=== PATIENT | female | born 1980 | race African-American/Black ===

== ENCOUNTER → 2016-04-09 | Outpatient (CLI) | payer MEDICARE, OTHER ==
[~2016-04-09] MED LIST: CETI10 PO; D32000CA PO; FLUT1SPR9 NASAL; OMPR20CCR PO; SUMA50 PO; TAB-TAB PO; VITA100017 PO; VITA500T49 PO
[2016-04-09 12:09] LABS: HEMATOCRIT 36.5 % (35.0-46.0); MEAN CELL VOLUME 83.7 FL (80.0-100.0); MEAN CORPUSCULAR HEMOGLOBIN 27.8 PG (27.0-34.0); MEAN CORPUSCULAR HGB CONC 33.3 % (32.0-36.0); PLATELET COUNT 423 TH/MM3 (150-450); RED BLOOD COUNT 4.37 MIL/MM3 (4.00-5.30); RED CELL DISTRIBUTION WIDTH 13.8 % (11.6-17.2); REVIEW FLAG FINAL; WHITE BLOOD COUNT 6.1 TH/MM3 (4.0-11.0)
[2016-04-09 12:40] LABS: ALKALINE PHOSPHATASE 67 U/L (45-117); ALT (GPT) 22 U/L (10-53); ANION GAP 6 MEQ/L (5-15); AST (GOT) 11 U/L (15-37); BICARBONATE 28.7 MEQ/L (21.0-32.0); BLOOD UREA NITROGEN 11 MG/DL (7-18); CHLORIDE 104 MEQ/L (98-107); GLOMERULAR FILTRATION RATE 75 ML/MIN (>89); GLUCOSE,FASTING 87 MG/DL (74-99); POTASSIUM 3.7 MEQ/L (3.5-5.1); SODIUM (NA) 139 MEQ/L (136-145); TOTAL BILIRUBIN ADULT 0.3 MG/DL (0.2-1.0)
[2016-04-09 13:57] LABS: WESTERGREN SEDIMENTATION RATE 64 mm/hr (0-20)
[2016-04-11 17:54] LABS: A FUMIGATUS CLASS 0 (()); A TENUIS LESS THAN 0 kU/L (()); A TENUIS CLASS 0 (()); BAHIA GRASS LESS THAN 0.10 kU/L (()); BAHIA GRASS CLASS 0 (()); BERMUDA GRASS LESS THAN 0.10 kU/L (()); BERMUDA GRASS CLASS 0 (()); BIRCH CLASS 0 (()); C HERBARUM LESS THAN 0.10 kU/L (()); C HERBARUM CLASS 0 (()); CAT DANDER LESS THAN 0.10 kU/L (()); CAT DANDER CLASS 0 (()); COCKROACH 0.58 kU/L (()); COCKROACH CLASS 1 (()); COMMON PIGWEED LESS THAN 0.10 kU/L (()); COMMON PIGWEED CLASS 0 (()); COMMON RAGWEED LESS THAN 0.10 kU/L (()); COMMON RAGWEED CLASS 0 (()); D FARINAE 0.27 kU/L (()); D PTERONYSSINUS 0.31 kU/L (()); DOG DANDER LESS THAN 0.10 kU/L (()); DOG DANDER CLASS 0 (()); ELM CLASS 0 (()); MAPLE (BOX ELDER) LESS THAN 0.10 kU/L (()); MAPLE (BOX ELDER) CLASS 0 (()); MOUNTAIN CEDAR LESS THAN 0.10 kU/L (()); MOUNTAIN CEDAR CLASS 0 (()); MOUSE CLASS 0 (()); MOUSE URINE PROTEINS LESS THAN 0.10 kU/L (()); NETTLE LESS THAN 0.10 kU/L (()); NETTLE CLASS 0 (()); OAK WHITE LESS THAN 0.10 kU/L (()); OAK WHITE CLASS 0 (()); PECAN TREE CLASS 0 (()); SHEEP SORREL LESS THAN 0.10 kU/L (()); SHEEP SORREL CLASS 0 (()); TIMOTHY GRASS LESS THAN 0.10 kU/L (()); TIMOTHY GRASS CLASS 0 (())
== END ==
LOC: CLAB 11:34
PROVIDERS: ATTEND Internal Medicine Rheumatology
DX: M06.09 Rheumatoid arthritis without rheumatoid factor, multiple sites (principal); J30.1 Allergic rhinitis due to pollen
CPT/HCPCS: 36415; 80053; 85027; 85652; 86003

== ENCOUNTER 2016-10-04 11:18 | Emergency (ER) | payer MEDICARE, OTHER ==
[~2016-10-04] VITALS: Ht 175.3 cm; Wt 125.0 kg
[2016-10-04 11:19] VITALS: BP 133/86; PULSE 120; RESP 20; TEMP 97.8; O2SAT 98
[2016-10-04] MEDS ORDERED: ONCETAB7 PO (11:35)
[2016-10-04] MEDS ORDERED: VITA500T49 PO (11:35)
[2016-10-04] MEDS ORDERED: ARAV10TA PO (11:35)
[2016-10-04] MEDS ORDERED: CELE50CA PO (11:35)
[2016-10-04] MEDS ORDERED: VITACRY3 (11:35)
[2016-10-04] MEDS ORDERED: FOLI20CA PO (11:35)
[2016-10-04] MEDS ORDERED: ASCO1TAB PO (11:35)
[2016-10-04] MEDS ORDERED: CETI-1 PO (11:35)
[2016-10-04] MEDS ORDERED: ABAT1INJ SQ (11:35)
--- NOTE | 2016-10-04 11:35 | PD ---
HPI Chief Complaint: Lump, Cyst, Hernia Time Seen by Provider: 11:31 Travel History International Travel<30 days: No Contact w/Intl Traveler<30days: No Traveled to known affect area: No History of Present Illness HPI 36-year-old female presents emergency department for evaluation of possible painful pilonidal cyst. Patient reports previous history of multiple incision and drainage of pilonidal cyst. She reports this pain is similar to previous episodes. The pain is nonradiating. She reports pain started personally 7 days ago. Symptoms severity moderate. No aggravating or alleviating factors. She denies fever, chills, nausea, vomiting. PFSH Past Medical History Arthritis: Yes ?: Not Dilation and Curettage (D&C): Yes Past Surgical History Section: Yes Social History Alcohol Use: Yes (occ) Tobacco Use: No Substance Use: No Allergies-Medications (Allergen,Severity, Reaction): Coded Allergies: No Known Allergies (Unverified , 02/22/15) Reported Meds & Prescriptions Reported Meds & Active Scripts Active Reported Folic Acid 20 Mg Cap 20 Mg PO Celebrex (Celecoxib) 50 Mg Cap 20 Mg PO BID Arava (Leflunomide) 10 Mg Tab 10 Mg PO DAILY Orencia Inj (Abatacept Inj) 125 Mg/Ml Syr 125 Mg SQ Q7D Once Daily (Multivitamin) 1 Each Tablet 1 Tab PO DAILY Vitamin B12 (Cyanocobalamin) 500 Mcg Tab 500 Mcg PO DAILY Zyrtec (Cetirizine HCl) 10 Mg Tablet 10 Mg PO DAILY C-1000 Prolonged Release (Ascorbic Acid) 1,000 Mg Tab 1,000 Mg PO DAILY Domitila-C (Ascorbic Acid) 1 Cry Cry Review of Systems Except as stated in HPI: all other systems reviewed are Neg General / Constitutional: No: Fever Eyes: No: Visual changes HENT: No: Headaches Cardiovascular: No: Chest Pain or Discomfort Respiratory: No: Shortness of Breath Gastrointestinal: No: Abdominal Pain Genitourinary: No: Dysuria Physical Exam Narrative GENERAL: Well-nourished, well-developed patient. SKIN: Focused skin assessment warm/dry. 2 cm diameter raised area with central fluctuance superior aspect of the right buttocks fold. No surrounding erythema. HEAD: Normocephalic. EYES: No scleral icterus. No injection or drainage. NECK: Supple, trachea midline. No JVD or lymphadenopathy. CARDIOVASCULAR: Regular rate and rhythm without murmurs, gallops, or rubs. RESPIRATORY: Breath sounds equal bilaterally. No accessory muscle use. GASTROINTESTINAL: Abdomen soft, non-tender, nondistended. MUSCULOSKELETAL: No cyanosis, or edema. BACK: Nontender without obvious deformity. No CVA tenderness. Data Data Last Documented VS Vital Signs Date Time Temp Pulse Resp B/P Pulse Ox O2 Delivery O2 Flow Rate FiO2 10/04/16 11:19 97.8 120 20 133/86 98 Room Air Orders Lidocai-Epi 1%-1:100,000 Inj (Xylocaine- (10/04/16 11:45) MDM Medical Decision Making Medical Screen Exam Complete: Yes Emergency Medical Condition: Yes Differential Diagnosis Abscess, pilonidal cyst, cellulitis Narrative Course 36-year-old female presents emergency department for evaluation of possible pilonidal cyst. Patient reports multiple I&D's in the same site within the last several years. Symptom onset 7 days ago. Patient denies fever or chills. On assessment patient has a 2 cm diameter raised fluctuant abscess. Incision and drainage performed. Patient tolerated procedure well. Patient placed on antibiotics. Instructed to return in 2 days or follow up with her PCP for drain removal. Return precautions discussed. Patient verbalizes understanding Procedures Procedure Narrative Incision and drainage: The area was prepped with Betadine. 2 cc of 1% lidocaine with epi infiltrated to the area of fluctuance. #11 blade used to make a small incision. A large amount of purulent drainage expressed. The wound was packed with iodoform. A sterile dressing placed. Patient tolerated procedure well. Diagnosis Primary Impression: Abscess Referrals: Primary Care Physician Additional Instructions: Take the antibiotics as prescribed. The drainage to be removed in 2 days. Take [id number] Motrin [id number] milligrams by mouth every 6-8 hours as needed for pain. Return to the emergency department if he develop new or worsening symptoms. Scripts Clindamycin 300 Mg [id number] Mg PO Q6H #40 CAP Prov:Effie Alfonso 10/04/16 Disposition: 01 DISCHARGE HOME Condition: Stable Effie Alfonso Oct 04, 2016 11:35
[2016-10-04] MEDS ORDERED: LIDOCAINE 1%/EPINEPHrine 1:100,000 SOLN 20 ML VIAL INFIL ONE (11:45)
[2016-10-04] MEDS ORDERED: CLIN1CAP6 PO (11:58)
== END 2016-10-04 12:07 | disposition home or self-care (01) ==
LOC: NEPD 11:18
DX: L05.91 Pilonidal cyst without abscess (principal); M13.80 Other specified arthritis, unspecified site; Z79.899 Other long term (current) drug therapy
CPT/HCPCS: 10061

== ENCOUNTER → 2016-10-09 | Outpatient (CLI) | payer MEDICARE, OTHER ==
[~2016-10-09] MED LIST changes: +ABAT1INJ SQ; +ARAV10TA PO; +ASCO1TAB PO; +CELE50CA PO; +CETI-1 PO; -CETI10 PO; +CLIN1CAP6 PO; -D32000CA PO; -FLUT1SPR9 NASAL; +FOLI20CA PO; -OMPR20CCR PO; +ONCETAB7 PO; -SUMA50 PO; -TAB-TAB PO; -VITA100017 PO; +VITACRY3
[2016-10-09 10:22] LABS: HEMATOCRIT 34.5 % (35.0-46.0); MEAN CELL VOLUME 83.4 FL (80.0-100.0); MEAN CORPUSCULAR HEMOGLOBIN 27.2 PG (27.0-34.0); MEAN CORPUSCULAR HGB CONC 32.7 % (32.0-36.0); PLATELET COUNT 400 TH/MM3 (150-450); RED BLOOD COUNT 4.13 MIL/MM3 (4.00-5.30); RED CELL DISTRIBUTION WIDTH 14.6 % (11.6-17.2); REVIEW FLAG FINAL; WHITE BLOOD COUNT 4.7 TH/MM3 (4.0-11.0)
[2016-10-09 10:44] LABS: ANION GAP 11 MEQ/L (5-15); AST (GOT) 20 U/L (15-37); BICARBONATE 25.3 MEQ/L (21.0-32.0); BLOOD UREA NITROGEN 8 MG/DL (7-18); CHLORIDE 105 MEQ/L (98-107); GLOMERULAR FILTRATION RATE 79 ML/MIN (>89); GLUCOSE,FASTING 93 MG/DL (74-99); POTASSIUM 3.9 MEQ/L (3.5-5.1); SODIUM (NA) 141 MEQ/L (136-145)
[2016-10-09 10:45] LABS: ALT (GPT) 23 U/L (10-53)
[2016-10-09 10:47] LABS: ALKALINE PHOSPHATASE 59 U/L (45-117); TOTAL BILIRUBIN ADULT 0.3 MG/DL (0.2-1.0); WESTERGREN SEDIMENTATION RATE 57 mm/hr (0-20)
== END ==
LOC: CLAB 09:55
PROVIDERS: ATTEND Internal Medicine Rheumatology
DX: M06.09 Rheumatoid arthritis without rheumatoid factor, multiple sites (principal)
CPT/HCPCS: 36415; 80053; 85027; 85652

== ENCOUNTER 2017-08-14 13:53 | Emergency (ER) | payer MEDICARE, OTHER ==
[~2017-08-14 13:53] MED LIST changes: -CLIN1CAP6 PO; +CLIN300C5 PO; +VITA500T35 PO; -VITA500T49 PO
[2017-08-14 13:59] VITALS: BP 151/83; PULSE 84; RESP 16; TEMP 98.1; O2SAT 97
[2017-08-14] MEDS ORDERED: LIDOCAINE HCL 1% 50 ML VIAL INFIL ONE (14:45)
[2017-08-14] MEDS ORDERED: ACETAMINOPHEN/HYDROcodone 325 MG/7.5 MG TAB PO ONE (14:45)
--- NOTE | 2017-08-14 14:47 | PD ---
HPI Chief Complaint: Lump, Cyst, Hernia Time Seen by Provider: 14:19 Travel History International Travel<30 days: No Contact w/Intl Traveler<30days: No Traveled to known affect area: No History of Present Illness HPI 37-year-old female presents emergency department for evaluation of what she believes is an inflamed pilonidal cyst that started this week. Says she has a history of pilonidal cyst inflammations requiring incision and drainage. Says her last episode was 1 year ago. Denies history of significant surgeries to the area. Pain 8/10, worse with sitting, nonradiating. Denies fevers or chills. Denies nausea vomiting or diarrhea. She does not currently have a primary care physician. PFSH Past Medical History Arthritis: Yes ?: Not Dilation and Curettage (D&C): Yes Past Surgical History Section: Yes Social History Alcohol Use: Yes (occ) Tobacco Use: No Substance Use: No Allergies-Medications (Allergen,Severity, Reaction): Coded Allergies: No Known Allergies (Unverified , 02/22/15) Reported Meds & Prescriptions Reported Meds & Active Scripts Active Bactrim DS (Sulfamethoxazole-Trimethoprim) 800-160 Mg Tab 1 Tab PO BID Clindamycin (Clindamycin HCl) 300 Mg Cap 300 Mg PO Q6H Reported Folic Acid 20 Mg Cap 20 Mg PO Celebrex (Celecoxib) 50 Mg Cap 20 Mg PO BID Arava (Leflunomide) 10 Mg Tab 10 Mg PO DAILY Orencia Inj (Abatacept Inj) 125 Mg/Ml Syr 125 Mg SQ Q7D Once Daily (Multivitamin) 1 Each Tablet 1 Tab PO DAILY Vitamin B12 (Cyanocobalamin) 500 Mcg Tab 500 Mcg PO DAILY Zyrtec (Cetirizine HCl) 10 Mg Tablet 10 Mg PO DAILY C-1000 Prolonged Release (Ascorbic Acid) 1,000 Mg Tab 1,000 Mg PO DAILY Domitila-C (Ascorbic Acid) 1 Cry Cry Review of Systems Except as stated in HPI: all other systems reviewed are Neg Physical Exam Narrative GENERAL: Well-nourished, well-developed patient, in NAD SKIN: Focused skin assessment warm/dry. No rashes or lesions. Back-pilonidal area with a 1-1/2-2 cm round cyst, fluctuant without surrounding erythema or edema. No central puncta HEAD: Normocephalic. Atraumatic. EYES: No scleral icterus. No injection or drainage. THROAT: No pharyngeal injection, exudates, or tonsillar hypertrophy. Airway is patent. NECK: Supple, trachea midline. No JVD. No meningismus. CARDIOVASCULAR: Regular rate and rhythm without murmurs, gallops, or rubs. RESPIRATORY: Breath sounds equal bilaterally. No accessory muscle use. No wheezes, rales, or rhonchi MUSCULOSKELETAL: No cyanosis, or edema. BACK: Nontender without obvious deformity. No CVA tenderness. Data Data Last Documented VS Vital Signs Date Time Temp Pulse Resp B/P (MAP) Pulse Ox O2 Delivery O2 Flow Rate FiO2 08/14/17 13:59 98.1 84 16 151/83 (105) 97 Orders Orders Acetamin-Hydrocod 325-7.5 Mg ([place] 7.5 (08/14/17 14:45) Lidocaine 1% Inj (50 Ml) (Xylocaine 1% I (08/14/17 14:45) Wound Care (08/14/17 15:35) Ed Discharge Order (08/14/17 15:36) MDM Medical Decision Making Medical Screen Exam Complete: Yes Emergency Medical Condition: Yes Differential Diagnosis Pilonidal cyst abscess, cellulitis, erysipelas Narrative Course 37-year-old female presents emergency department for evaluation of abscess to the pilonidal area. Incision and drainage was performed to the area. Half-inch packing placed. Advised on wound care. Bactrim for infection control. Advised to return in approximate 48 hours for wound check. Advised that she should find a primary care physician to follow-up with. Procedures Procedure Narrative INCISION AND DRAINAGE OF ABSCESS: The area was prepped and was sterilely draped. A subcutaneous wheal of 1 % Xylocaine without epinephrine with a total number 1 mL was used to anesthetize the area properly. A number 11 scalpel was used to make a 1-cm incision across the area of the abscess. The abscess was drained, complex loculations were broken down, and irrigated with normal saline. Half inch iodoform packing was placed in the wound. Sterile dressing applied. Patient advised to have packing removed in two days. Diagnosis Primary Impression: Abscess Referrals: Primary Care Physician Additional Instructions: You may return to the emergency department for wound check in approximately 2 days. Keep area clean and dry for 24 hours. After 24 hours, you may bathe as normal but dry the area thoroughly. Change dressings daily. If you developed increased redness, swelling, or pain return to the emergency department as this could be a sign of infection. Scripts Sulfamethoxazole-Trimethoprim (Bactrim DS) 800-160 Mg Tab 1 TAB PO BID for Infection, #14 TAB 0 Refills Prov: Laurent Casas MD 08/14/17 Disposition: 01 DISCHARGE HOME Condition: Stable Payton Xie August 14, 2017 14:47
[2017-08-14] MEDS ORDERED: BACT800T5 PO (15:34)
== END 2017-08-14 15:49 | disposition home or self-care (01) ==
LOC: NEPD 13:53
DX: L05.01 Pilonidal cyst with abscess (principal)
CPT/HCPCS: 10060